=== PATIENT | female | born 1930 | race Caucasian/White ===

== ENCOUNTER 2016-04-09 15:01 | Emergency (ER) | payer MEDICARE, OTHER ==
[~2016-04-09] VITALS: Ht 162.6 cm; Wt 56.7 kg
[~2016-04-09 15:01] MED LIST: ACTO35TA PO; ASPI-99 PO; B COTAB3 PO; MULT-65 PO; NAPR250T57 OR; SALM1000 PO; SIMV40TA PO; SYNT112T PO
[2016-04-09 15:08] VITALS: BP 175/78; PULSE 98; RESP 16; TEMP 98.1; O2SAT 100
--- NOTE | 2016-04-09 15:58 | PD ---
HPI Chief Complaint: Laceration/Skin Injury Time Seen by Provider: 15:54 Travel History International Travel<30 days: No Contact w/Intl Traveler<30days: No Traveled to known affect area: No History of Present Illness HPI Patient is an 85-year-old female who presents to the emergency department via EMS for evaluation of a left knee laceration, left finger pain, left hip pain. Patient was at the gym when the treadmill started to accelerate, causing patient to lose her balance and fall. She denies any injury or loss of consciousness. Patient is able to ambulate but continues to have pain and tenderness in the left hip and groin. She takes 81 mg of baby aspirin daily. She denies any shortness of breath, dizziness, headache, chest pain prior to falling. PFSH Past Medical History Hx Anticoagulant Therapy: Yes (BABY ASA QOD) Cancer: No Cardiovascular Problems: Yes (CHOL) Diabetes: No Endocrine: Yes Genitourinary: No Hepatitis: No Hiatal Hernia: No Immune Disorder: No Musculoskeletal: Yes (ARTHRITIS) Neurologic: No Psychiatric: Yes (SLIGHT CLAUSTROPHOBIA ) Reproductive: No Respiratory: No Thyroid Disease: Yes ?: Not Past Surgical History Abdominal Surgery: No AICD: No Cardiac Surgery: No Ear Surgery: No Endocrine Surgery: Yes (TOTAL THYROIDECTOMY ) Eye Surgery: No Genitourinary Surgery: No Gynecologic Surgery: No Joint Replacement: No Oral Surgery: No Pacemaker: No Thoracic Surgery: No Social History Alcohol Use: No Tobacco Use: No Substance Use: No Allergies-Medications (Allergen,Severity, Reaction): Uncoded Allergies: ACTH GEL (Allergy, Severe, EDEMA, 07/08/12) Reported Meds & Prescriptions Reported Meds & Active Scripts Active Flexeril (Cyclobenzaprine HCl) 5 Mg Tab 5 Mg PO TID PRN 7 Days Ibuprofen 600 Mg Tab 600 Mg PO Q8HR PRN 7 Days Reported Aspirin 81 (Aspirin) 81 Mg Tabdr 81 Mg PO EVERY OTHER DAY Zocor (Simvastatin) 40 Mg Tab 40 Mg PO DAILY [thyroid pill] Review of Systems Except as stated in HPI: all other systems reviewed are Neg Eyes: No: Visual changes HENT: No: Headaches, Neck Pain Cardiovascular: No: Chest Pain or Discomfort Respiratory: No: Shortness of Breath Gastrointestinal: No: Nausea, Abdominal Pain Musculoskeletal: Positive: Myalgias, Arthralgias, Pain Skin: Positive Change in Pigmentation, Positive Other (laceration to left knee) Neurologic: No: Weakness, Dizziness, Syncope Physical Exam Narrative GENERAL: Well-nourished, well-developed patient. SKIN: Warm and dry. Ecchymosis noted over the left first finger, left forearm. 3 cm laceration to anterior left knee. HEAD: Normocephalic. EYES: No scleral icterus. No injection or drainage. NECK: Supple, trachea midline. No JVD or lymphadenopathy. CARDIOVASCULAR: Regular rate and rhythm without murmurs, gallops, or rubs. RESPIRATORY: Breath sounds equal bilaterally. No accessory muscle use. GASTROINTESTINAL: Abdomen soft, non-tender, nondistended. MUSCULOSKELETAL: No cyanosis, or edema. BACK: Nontender without obvious deformity. No CVA tenderness. Data Data Last Documented VS Vital Signs Date Time Temp Pulse Resp B/P Pulse Ox O2 Delivery O2 Flow Rate FiO2 04/09/16 15:08 98.1 98 16 175/78 100 Orders Lidocai-Epi 2%-1:100,000 Inj (Xylocaine- (04/09/16 16:00) Tetanus/Diphtheria Tox Adult (Tetanus/Di (04/09/16 16:00) Finger (Ves1daz) (04/09/16 ) Ibuprofen (Motrin) (04/09/16 16:00) Hip, Uni(Ap&Lat) W Ap Pelvis (04/09/16 ) Support Splint (04/09/16 18:08) MDM Medical Decision Making Medical Screen Exam Complete: Yes Emergency Medical Condition: Yes Interpretation(s) Vital Signs Date Time Temp Pulse Resp B/P Pulse Ox O2 Delivery O2 Flow Rate FiO2 04/09/16 15:08 98.1 98 16 175/78 100 Differential Diagnosis Laceration versus contusion versus fracture versus sprain versus strain versus other Narrative Course Patient is an 85-year-old female who presented to the emergency room for evaluation of a laceration and joint pain after falling off of the treadmill at the gym her [employer] complex. Patient is neurologically intact. Imaging is ordered of the left finger and left hip. Tetanus vaccine will be updated now. Ibuprofen ordered for pain. See procedure report for laceration repair. Patient tolerated laceration repair. Patient is able to ambulate without difficulty to and from the bathroom. Imaging of the left hip and left finger are negative. There are hypertrophic changes to the left hand consistent with patient's report of arthritis. Patient was advised that she may feel more sore tomorrow. She was encouraged to follow-up with her primary doctor, alternate heat and ice to affected areas, continue range of motion exercises. She was encouraged to return to emergency department for any new or worsening symptoms. Patient also verbalized understanding of these instructions. Patient is stable for discharge. Procedures Procedure Narrative LACERATION LOCATION: Left knee LENGTH: 3 cm NUMBER OF STITCHES/NAEL: 12 stitches REPAIR: The area of the laceration was prepped with Betadine and sterilely draped. The base of the wound is well visualized. The laceration was infiltrated with 2% Xylocaine. The wound was copiously irrigated and explored without evidence of foreign body, tendon injury or neurovascular injury. The wound was closed using 4-0 Prolene. This was a 1 layer repair. A sterile dressing topical antibiotic ointment was applied. The patient was advised to keep the dressing clean and dry. Patient tolerated the procedure well. Diagnosis Primary Impression: Fall Qualified Code: W19.XXXA - Fall, initial encounter Additional Impressions: Laceration Multiple contusions Referrals: Primary Care Physician Patient Instructions: Care For Your Stitches (ED), Contusion in Adults (ED), Fall Prevention for Older Adults (ED), General Instructions, Laceration (ED), Stitches Removal (DC) Additional Instructions: Follow-up with her primary doctor Stitches need to be removed in 10-14 days Keep sutures clean and dry, you may shower and wash with soap and water Take medications as directed Alternate heat and ice to affected areas Return to emergency department for any new or worsening symptoms Med/Other Pt SpecificInfo: Prescription(s) given Scripts Walker with Front Wheels 1 Mis Mis #1 EA .ROUTE DIRECTED Ref 0 Prov:Anne Sebastian 04/09/16 Cyclobenzaprine (Flexeril)5 Mg Tab5 Mg PO TID PRN (MUSCLE SPASM) 7 Days Ref 0 Prov:Anne Sebastian 04/09/16 Ibuprofen 600 Mg [id number] Mg PO Q8HR PRN (PAIN) 7 Days Ref 0 Prov:Anne Sebastian 04/09/16 Disposition: 01 DISCHARGE HOME Condition: Stable Anne Sebastian Apr 09, 2016 15:58
[2016-04-09] MEDS ORDERED: IBUPROFEN 600 MG TAB PO ONE (16:00)
[2016-04-09] MEDS ORDERED: LIDOCAINE 2%/EPINEPHrine 1:100,000 30ML MDV INFIL ONE (16:00)
[2016-04-09] MEDS ORDERED: TETANUS/DIPHTHERIA TOXOID ADULT 0.5 ML VIAL IM ONE (16:00)
[2016-04-09] MEDS ORDERED: [UNRECOGNIZED DRUG - REMARK] (16:29)
[2016-04-09] MEDS ORDERED: ZOCO40TA PO (16:29)
[2016-04-09] MEDS ORDERED: ASPI-110 PO (16:29)
--- NOTE | 2016-04-09 17:33 | RADHPO ---
EXAM DATE/TIME: 04/09/2016 17:04 [facility] COMPARISON: No previous studies available for comparison. INDICATIONS : Fell, left hip area pain MEDICAL HISTORY : None. SURGICAL HISTORY : None. ENCOUNTER: Initial ACUITY: 1 day PAIN SCORE: 7/10 LOCATION: Left hip FINDINGS: Examination of the left hip was performed with AP Pelvis. The primary and secondary trabecular patte rn of the femoral neck is intact. The hip joint is of normal width without significant sclerosis or bony hypertrophy. The acetabulum is grossly intact. There is degenerative change of the lower lumbar spine. Vascular calcifications are seen. CONCLUSION: No acute disease. Rolando Moncada MD on April 09, 2016 at 17:31 Board Certified Radiologist. This report was verified electronically.
--- NOTE | 2016-04-09 17:36 | RADHPO ---
EXAM DATE/TIME: 04/09/2016 17:11 [facility] COMPARISON: No previous studies available for comparison. INDICATIONS : Fell, left thumb pain and swelling MEDICAL HISTORY : None. SURGICAL HISTORY : None. ENCOUNTER: Initial ACUITY: 1 day PAIN SCORE: 7/10 LOCATION: Left finger FINDINGS: A definite fracture is not clearly seen. There does appear to be a small bony fragment seen anterior to the proximal aspect of the 1st distal phalanx and adjacent to the proximal aspect of the 1st prox imal phalanx. These are likely related to accessory ossicles and hypertrophic change. There is join t space narrowing seen at the lateral mid carpal row. There is some hypertrophic change at the 1st c arpometacarpal joint. 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 There is joint space narrowing and central erosions at the 2nd, 3rd and 4th DIP joints and at the 5th PIP joint. There is some earnestine nt space narrowing at the 4th PIP joint. CONCLUSION: No definite acute abnormality is seen. There is chronic change as described above likely related to osteoarthritis. Rolando Moncada MD on April 09, 2016 at 17:30 Board Certified Radiologist. This report was verified electronically.
[2016-04-09] MEDS ORDERED: IBUP-232 PO (18:11)
[2016-04-09] MEDS ORDERED: CYCL5TAB PO (18:11)
[2016-04-09] MEDS ORDERED: WALKER WHEELS/F1 MIS (18:24)
== END 2016-04-09 18:42 | disposition home or self-care (01) ==
LOC: PHED 15:01 → PHEFT 18:42
DX: S81.012A Laceration without foreign body, left knee, initial encounter (principal); S50.12XA Contusion of left forearm, initial encounter; S60.022A Contusion of left index finger without damage to nail, initial encounter; M25.552 Pain in left hip; E07.9 Disorder of thyroid, unspecified; Z23 Encounter for immunization; Z79.82 Long term (current) use of aspirin; Z86.79 Personal history of other diseases of the circulatory system; Z87.39 Personal history of other diseases of the musculoskeletal system and connective tissue; W31.81XA Contact with recreational machinery, initial encounter; Y93.A1 Activity, exercise machines primarily for cardiorespiratory conditioning; Y92.39 Other specified sports and athletic area as the place of occurrence of the external cause
CPT/HCPCS: 12002; 73140; 73502; 90471; 90714

== ENCOUNTER → 2016-06-27 | Outpatient (CLI) | payer MEDICARE, OTHER ==
[~2016-06-27] MED LIST changes: -ACTO35TA PO; +ASPI-110 PO; -ASPI-99 PO; -B COTAB3 PO; +CYCL5TAB PO; +IBUP-232 PO; -MULT-65 PO; -NAPR250T57 OR; -SALM1000 PO; -SIMV40TA PO; -SYNT112T PO; +WALKER WHEELS/F1 MIS; +ZOCO40TA PO; +[UNRECOGNIZED DRUG - REMARK]
[2016-06-27 10:25] LABS: HEMATOCRIT 40.1 % (35.0-46.0); MEAN CELL VOLUME 92.1 FL (80.0-100.0); MEAN CORPUSCULAR HEMOGLOBIN 32.3 PG (27.0-34.0); PLATELET COUNT 209 TH/MM3 (150-450); RED BLOOD COUNT 4.36 MIL/MM3 (4.00-5.30); RED CELL DISTRIBUTION WIDTH 13.3 % (11.6-17.2); REVIEW FLAG FINAL; WHITE BLOOD COUNT 5.9 TH/MM3 (4.0-11.0)
[2016-06-27 10:47] LABS: ALT (GPT) 27 U/L (10-53); ANION GAP 8 MEQ/L (5-15); AST (GOT) 25 U/L (15-37); BICARBONATE 27.7 MEQ/L (21.0-32.0); BLOOD UREA NITROGEN 12 MG/DL (7-18); CHLORIDE 106 MEQ/L (98-107); GLOMERULAR FILTRATION RATE 66 ML/MIN (>89); GLUCOSE,FASTING 98 MG/DL (74-99); POTASSIUM 3.6 MEQ/L (3.5-5.1); SODIUM (NA) 142 MEQ/L (136-145); THYROXINE (T4) 6.2 MCG/DL (4.8-13.9)
[2016-06-27 10:56] LABS: ALKALINE PHOSPHATASE 50 U/L (45-117); HDL CHOLESTEROL 113.4 MG/DL (40.0-60.0); LDL CHOLESTEROL 71 MG/DL (0-99); TOTAL BILIRUBIN ADULT 0.7 MG/DL (0.2-1.0)
[2016-06-27 16:42] LABS: HEMOGLOBIN A1b 0.7 %; HEMOGLOBIN Ao 86.3 %; HEMOGLOBIN P3 3.5 %
== END ==
LOC: PLAB 07:59
PROVIDERS: ATTEND Family Medicine
DX: E78.2 Mixed hyperlipidemia (principal); I10 Essential (primary) hypertension; E03.8 Other specified hypothyroidism; E55.9 Vitamin D deficiency, unspecified; Z79.899 Other long term (current) drug therapy
CPT/HCPCS: 36415; 80053; 80061; 82306; 83036; 84436; 84443; 84480; 85027

== ENCOUNTER → 2016-07-25 | Outpatient (CLI) | payer MEDICARE, OTHER ==
[2016-07-25 10:25] LABS: FREE T3 3.26 PG/ML (2.18-3.98); FREE T4 0.68 NG/DL (0.76-1.46)
== END ==
LOC: PLAB 06:37
PROVIDERS: ATTEND Family Medicine
DX: E03.8 Other specified hypothyroidism (principal); Z79.899 Other long term (current) drug therapy
CPT/HCPCS: 36415; 84439; 84443; 84481

== ENCOUNTER → 2016-11-30 | Outpatient (CLI) | payer MEDICARE, OTHER ==
[2016-11-30 09:39] LABS: AUTOMATED NEUTROPHIL # 4.9 TH/MM3 (1.8-7.7); BASOPHIL % 0.4 % (0.0-2.0); EOSINOPHIL % 0.8 % (0.0-4.0); HEMATOCRIT 39.9 % (35.0-46.0); HEMO FLAGS DIFF FINAL; LYMPH % 10.5 % (9.0-44.0); LYMPHOCYTE # 0.6 TH/MM3 (1.0-4.8); MEAN CELL VOLUME 93.5 FL (80.0-100.0); MEAN CORPUSCULAR HEMOGLOBIN 32.3 PG (27.0-34.0); MEAN CORPUSCULAR HGB CONC 34.6 % (32.0-36.0); MONO % 7.6 % (0.0-8.0); NEUT % 80.7 % (16.0-70.0); PLATELET COUNT 207 TH/MM3 (150-450); RED BLOOD COUNT 4.27 MIL/MM3 (4.00-5.30); RED CELL DISTRIBUTION WIDTH 12.9 % (11.6-17.2); WHITE BLOOD COUNT 6.1 TH/MM3 (4.0-11.0)
[2016-11-30 09:57] LABS: ANION GAP 7 MEQ/L (5-15); AST (GOT) 30 U/L (15-37); BICARBONATE 27.5 MEQ/L (21.0-32.0); BLOOD UREA NITROGEN 18 MG/DL (7-18); CHLORIDE 107 MEQ/L (98-107); GLOMERULAR FILTRATION RATE 81 ML/MIN (>89); GLUCOSE,FASTING 92 MG/DL (74-99); POTASSIUM 3.7 MEQ/L (3.5-5.1); SODIUM (NA) 141 MEQ/L (136-145)
[2016-11-30 10:10] LABS: ALKALINE PHOSPHATASE 51 U/L (45-117); ALT (GPT) 25 U/L (10-53); HDL CHOLESTEROL 109.8 MG/DL (40.0-60.0); LDL CHOLESTEROL 83 MG/DL (0-99); TOTAL BILIRUBIN ADULT 0.7 MG/DL (0.2-1.0)
[2016-11-30 15:50] LABS: HEMOGLOBIN A1a 0.9 %; HEMOGLOBIN A1b 0.6 %; HEMOGLOBIN Ao 86.4 %; HEMOGLOBIN P3 3.5 %
== END ==
LOC: PLAB 07:28
PROVIDERS: ATTEND Family Medicine
DX: I10 Essential (primary) hypertension (principal); E78.2 Mixed hyperlipidemia; E03.8 Other specified hypothyroidism; E55.9 Vitamin D deficiency, unspecified; Z79.899 Other long term (current) drug therapy
CPT/HCPCS: 36415; 80053; 80061; 82306; 83036; 84403; 84436; 84443; 84480; 85025

== ENCOUNTER → 2017-03-15 | Outpatient (CLI) | payer MEDICARE, OTHER ==
[~2017-03-15] MED LIST changes: -ASPI-110 PO; +ASPI1TAB57 PO
[2017-03-15 09:12] LABS: BASOPHIL % 0.4 % (0.0-2.0); EOSINOPHIL % 0.7 % (0.0-4.0); HEMATOCRIT 38.7 % (35.0-46.0); HEMOGLOBIN 13.7 GM/DL (11.6-15.3); LYMPH % 10.8 % (9.0-44.0); LYMPHOCYTE # 0.8 TH/MM3 (1.0-4.8); MEAN CELL VOLUME 95.1 FL (80.0-100.0); MEAN CORPUSCULAR HEMOGLOBIN 33.7 PG (27.0-34.0); MEAN CORPUSCULAR HGB CONC 35.5 % (32.0-36.0); MEAN PLATELET VOLUME 8.3 FL (7.0-11.0); MONOCYTE # 0.6 TH/MM3 (0-0.9); NEUT % 80.1 % (16.0-70.0); PLATELET COUNT 224 TH/MM3 (150-450); RED BLOOD COUNT 4.07 MIL/MM3 (4.00-5.30); RED CELL DISTRIBUTION WIDTH 13.7 % (11.6-17.2); WHITE BLOOD COUNT 7.5 TH/MM3 (4.0-11.0)
[2017-03-15 09:31] LABS: ALBUMIN 3.9 GM/DL (3.4-5.0); AST (GOT) 24 U/L (15-37); BICARBONATE 29.1 MEQ/L (21.0-32.0); BLOOD UREA NITROGEN 17 MG/DL (7-18); CALCIUM 9.5 MG/DL (8.5-10.1); CHLORIDE 104 MEQ/L (98-107); CREATININE 0.74 MG/DL (0.50-1.00); GLOMERULAR FILTRATION RATE 75 ML/MIN (>89); GLUCOSE,FASTING 107 MG/DL (74-99); SODIUM (NA) 140 MEQ/L (136-145)
[2017-03-15 09:43] LABS: ALKALINE PHOSPHATASE 52 U/L (45-117); ALT (GPT) 24 U/L (10-53); FREE T3 3.89 PG/ML (2.18-3.98); TOTAL BILIRUBIN ADULT 0.6 MG/DL (0.2-1.0); TOTAL PROTEIN 7.2 GM/DL (6.4-8.2)
== END ==
LOC: PLAB 07:15
PROVIDERS: ATTEND Family Medicine
DX: E03.8 Other specified hypothyroidism (principal); E64.0 Sequelae of protein-calorie malnutrition; Z79.899 Other long term (current) drug therapy
CPT/HCPCS: 36415; 80053; 84134; 84481; 85025

== ENCOUNTER → 2017-06-12 | Outpatient (CLI) | payer MEDICARE, OTHER ==
[2017-06-12 10:19] LABS: AUTOMATED NEUTROPHIL # 5.4 TH/MM3 (1.8-7.7); BASOPHIL % 0.5 % (0.0-2.0); EOSINOPHIL # 0.1 TH/MM3 (0-0.4); EOSINOPHIL % 2.1 % (0.0-4.0); HEMATOCRIT 38.9 % (35.0-46.0); HEMOGLOBIN 13.4 GM/DL (11.6-15.3); LYMPH % 11.9 % (9.0-44.0); LYMPHOCYTE # 0.8 TH/MM3 (1.0-4.8); MEAN CELL VOLUME 94.5 FL (80.0-100.0); MEAN CORPUSCULAR HEMOGLOBIN 32.7 PG (27.0-34.0); MEAN CORPUSCULAR HGB CONC 34.6 % (32.0-36.0); MEAN PLATELET VOLUME 8.2 FL (7.0-11.0); MONO % 7.8 % (0.0-8.0); MONOCYTE # 0.5 TH/MM3 (0-0.9); NEUT % 77.7 % (16.0-70.0); PLATELET COUNT 229 TH/MM3 (150-450); RED BLOOD COUNT 4.12 MIL/MM3 (4.00-5.30)
[2017-06-12 10:25] LABS: ALBUMIN 4.2 GM/DL (3.4-5.0); AST (GOT) 29 U/L (15-37); BICARBONATE 29.7 MEQ/L (21.0-32.0); BLOOD UREA NITROGEN 17 MG/DL (7-18); CALCIUM 9.5 MG/DL (8.5-10.1); CHLORIDE 105 MEQ/L (98-107); CHOLESTEROL 193 MG/DL (120-200); CREATININE 0.74 MG/DL (0.50-1.00); GLOMERULAR FILTRATION RATE 75 ML/MIN (>89); GLUCOSE,FASTING 109 MG/DL (74-99); SODIUM (NA) 141 MEQ/L (136-145); TRIGLYCERIDES 44 MG/DL (42-150)
[2017-06-12 10:34] LABS: ALKALINE PHOSPHATASE 53 U/L (45-117); ALT (GPT) 26 U/L (10-53); FREE T3 2.78 PG/ML (2.18-3.98); FREE T4 0.58 NG/DL (0.76-1.46); HDL CHOLESTEROL 101.4 MG/DL (40.0-60.0); LDL CHOLESTEROL 83 MG/DL (0-99); TOTAL BILIRUBIN ADULT 0.6 MG/DL (0.2-1.0); TOTAL PROTEIN 7.2 GM/DL (6.4-8.2)
== END ==
LOC: PLAB 07:31
PROVIDERS: ATTEND Family Medicine
DX: I10 Essential (primary) hypertension (principal); E78.2 Mixed hyperlipidemia; E03.8 Other specified hypothyroidism; E55.9 Vitamin D deficiency, unspecified; Z79.899 Other long term (current) drug therapy
CPT/HCPCS: 36415; 80053; 80061; 83036; 84439; 84443; 84481; 85025

== ENCOUNTER → 2017-07-25 | Outpatient (CLI) | payer MEDICARE, OTHER ==
[2017-07-25 10:45] LABS: FREE T3 2.07 PG/ML (2.18-3.98); FREE T4 0.7 NG/DL (0.76-1.46)
== END ==
LOC: PLAB 07:07
PROVIDERS: ATTEND Family Medicine
DX: E03.8 Other specified hypothyroidism (principal); Z79.899 Other long term (current) drug therapy
CPT/HCPCS: 36415; 84439; 84443; 84481; 84482

== ENCOUNTER → 2017-08-14 | Outpatient (CLI) | payer MEDICARE, OTHER ==
[2017-08-14 10:52] LABS: FREE T3 6.72 PG/ML (2.18-3.98); FREE T4 1.06 NG/DL (0.76-1.46)
== END ==
LOC: PLAB 07:18
PROVIDERS: ATTEND Family Medicine
DX: E03.8 Other specified hypothyroidism (principal); Z79.899 Other long term (current) drug therapy
CPT/HCPCS: 36415; 84439; 84443; 84481